=== PATIENT | female | born 1975 | race African-American/Black ===

== ENCOUNTER 2018-02-07 08:14 | Emergency (ER) | payer MEDICARE, MEDICAID ==
[~2018-02-07] VITALS: Ht 157.5 cm; Wt 63.0 kg
[2018-02-07 10:14] LABS: BASOPHILS % 0.7 % (0.0-2.0); EOSINOPHILS % 0.1 % (0.0-5.0); HEMATOCRIT. 41.3 % (36.0-48.0); HEMOGLOBIN. 13.9 g/dL (12.0-16.0); LYMPHOCYTES % 21.7 % (20.0-50.0); MEAN CORPUSCULAR HEMOGLOBIN 31.6 pg (28.0-32.0); MEAN CORPUSCULAR VOLUME 94.1 fL (81.0-99.0); MONOCYTES % 4.6 % (2.0-8.0); NEUTROPHILS % 72.9 % (40.0-76.0); PLATELET 331 x1000/uL (130-400); RED BLOOD CELL COUNT 4.39 mill/uL (4.2-5.4); RED CELL DISTRIBUTION WIDTH 13.5 % (11.6-14.6)
[2018-02-07 10:17] LABS: INR 1.1; PROTHROMBIN TIME 10.9 sec (9.4-11.6)
[2018-02-07 10:37] LABS: HCG SCREEN NEGATIVE
[2018-02-07 10:39] LABS: CHLORIDE 105 mEq/L (98-107)
[2018-02-07 10:40] LABS: B-HCG QUANTITATIVE < 1 mIU/mL (<3)
[2018-02-07 11:13] LABS: CLARITY URINE CLEAR (CLEAR); COLOR URINE YELLOW (YELLOW); KETONES URINE 2+ (NEGATIVE); LEUKOCYTE ESTERASE URINE NEGATIVE (NEGATIVE); NITRITE URINE NEGATIVE (NEGATIVE); OCCULT BLOOD URINE NEGATIVE (NEGATIVE); PH URINE 5.5 (4.5-8.0); PROTEIN URINE NEGATIVE (NEGATIVE); SPECIFIC GRAVITY URINE 1.038 (1.005-1.030); UROBILINOGEN URINE 0.2 E.U./dL (0.2-1.0)
[2018-02-07 14:00] VITALS: BP 130/76
== END 2018-02-07 14:06 | disposition home or self-care (01) ==
LOC: ER 08:32
DX: N93.9 Abnormal uterine and vaginal bleeding, unspecified (principal); R10.30 Lower abdominal pain, unspecified; R11.2 Nausea with vomiting, unspecified; F41.9 Anxiety disorder, unspecified; F31.9 Bipolar disorder, unspecified; F43.10 Post-traumatic stress disorder, unspecified; Z87.891 Personal history of nicotine dependence
CPT/HCPCS: 36415; 71045; 80053; 81003; 83690; 84702; 84703; 85025; 85610; 93005; 99285

== ENCOUNTER 2021-07-26 03:43 | Emergency (ER) | payer MEDICARE, MEDICAID ==
[~2021-07-26] VITALS: Ht 157.5 cm; Wt 66.0 kg
[2021-07-26] MEDS ORDERED: HYDROCODONE/ACETAMINOPHEN 5/325MG TABLET PO ONE (04:30)
[2021-07-26] MEDS ORDERED: TOPUD MT (05:37)
[2021-07-26] MEDS ORDERED: IBUP-2028 MT (05:37)
[2021-07-26 06:40] VITALS: BP 125/63
== END 2021-07-26 07:01 | disposition home or self-care (01) ==
LOC: ER 03:43
DX: S06.899A Other specified intracranial injury with loss of consciousness of unspecified duration, initial encounter (principal); S01.512A Laceration without foreign body of oral cavity, initial encounter; S00.531A Contusion of lip, initial encounter; R51.9 Headache, unspecified; F41.9 Anxiety disorder, unspecified; F31.9 Bipolar disorder, unspecified; F43.10 Post-traumatic stress disorder, unspecified; Y04.0XXA Assault by unarmed brawl or fight, initial encounter; Y93.89 Activity, other specified; Y92.238 Other place in hospital as the place of occurrence of the external cause; Y99.8 Other external cause status
CPT/HCPCS: 70486; 99285; L0172

== ENCOUNTER 2022-07-03 09:07 | Emergency (ER) | payer MEDICARE, MEDICAID ==
[~2022-07-03] VITALS: Ht 157.5 cm; Wt 66.5 kg
[~2022-07-03 09:07] MED LIST: IBUP-2028 MT; TOPUD MT
[2022-07-03 09:12] VITALS: BP 142/88
[2022-07-03] MEDS ORDERED: LORAZEPAM 0.5MG TABLET PO ONE (10:00)
[2022-07-03] MEDS ORDERED: LORA-249 MT (10:00)
== END 2022-07-03 10:43 | disposition home or self-care (01) ==
LOC: ER 09:07
DX: F41.9 Anxiety disorder, unspecified (principal)
CPT/HCPCS: 99283